=== PATIENT | male | born 1950 | race Caucasian/White ===

== ENCOUNTER 2019-12-23 02:43 | Observation (INO) | payer MEDICARE, BC ==
[~2019-12-23] VITALS: Ht 172.7 cm; Wt 68.2 kg
[2019-12-23] VITALS (14 sets, daily range): BP systolic 119–168; BP diastolic 59–80
[~2019-12-23 02:43] MED LIST: ASPI-611 PO; CLOP75TA35 PO; LOSA50TA64 PO; METO25TA6 PO; MULT-1085 PO; SIMV20TA PO; UBID100C16 PO
[2019-12-23] MEDS ORDERED: nitroGLYCERIN 0.4mg SUBLingual tab SL PRN ×2 (02:55→04:05)
[2019-12-23] MEDS ORDERED: aspirin 81mg tab.chew PO ONE (02:55)
[2019-12-23] MEDS ORDERED: CLOP75TA35 PO (03:00)
[2019-12-23 03:17] LABS: BASOPHILS # (AUTO) 0.1 X10'3 (0-0.2); EOSINOPHILS # (AUTO) 0.7 X10'3 (0-0.9); EOSINOPHILS % (AUTO) 10.5 % (0-6); HEMATOCRIT 40.5 % (42.0-52.0); HEMOGLOBIN 13.4 g/dl (14.0-17.9); LYMPHOCYTES # (AUTO) 2.3 X10'3 (1.1-4.8); LYMPHOCYTES % (AUTO) 33.7 % (21-51); MEAN CORPUSCULAR HEMOGLOBIN 31.9 PG (27.0-31.0); MEAN CORPUSCULAR VOLUME 96.6 FL (78-98); MEAN PLATELET VOLUME 8.1 FL (7.4-10.4); MONOCYTES # (AUTO) 0.9 X10'3 (0-0.9); MONOCYTES % (AUTO) 12.8 % (2-12); NEUTROPHILS # (AUTO) 2.9 X10'3 (1.8-7.7); PLATELET COUNT 306 X10'3 (140-440); RED BLOOD COUNT 4.19 X10'6 (4.70-6.10); RED CELL DISTRIBUTION WIDTH 12.8 % (11.5-14.5)
--- NOTE | 2019-12-23 03:21 | NUR ---
Gave patient 0.4mg Nitroglycerin. Pain began at 6/10 burning in right chest radiating to back and right shoulder. Initial blood pressure 191/85. Pulse 78, SpO2 96%, respiratory rate 13. Gave patient second dose of 0.4 Nitrogylcerin. Patient states pain is still 5/10. Blood pressure 170/88 at time given. Gave patient third dose of 0.4mg Nitroglycerin. Blood pressure 147/78 at time given. Patient states after third dose of Nitro that his pain is unchanged. Final blood pressure 133/80
[2019-12-23 03:26] LABS: ALANINE AMINOTRANSFERASE 30 U/L (12-78); ALBUMIN/GLOBULIN RATIO 1.1 (1.1-1.5); ALKALINE PHOSPHATASE 138 IU/L (46-116); ANION GAP 9 (8-16); ASPARTATE AMINO TRANSFERASE 35 U/L (10-37); BILIRUBIN,TOTAL 1.1 MG/DL (0.1-1.0); BLOOD UREA NITROGEN 16 MG/DL (7-18); BUN/CREATININE RATIO 12.3 (5.4-32.0); CALCIUM 9.1 MG/DL (8.5-10.1); CHLORIDE 104 MMOL/L (99-107); GLUCOSE 120 MG/DL (70-104); POTASSIUM 4.3 MMOL/L (3.5-5.1); SODIUM 140 MMOL/L (135-145); TOTAL CARBON DIOXIDE 26.7 MMOL/L (24-32); TOTAL PROTEIN 7.7 G/DL (6.4-8.2); eGFR 55 ML/MIN
[2019-12-23] MEDS ORDERED: nitroGLYCERIN 0.4mg/hour patch TD ONE (04:00)
[2019-12-23] MEDS ORDERED: mag hydrox/Alum hydrox/simeth 30ml oral suspension PO PRN (04:05)
[2019-12-23] MEDS ORDERED: regadenoson 0.4mg/5ml syringe IV ONE (04:05)
[2019-12-23] MEDS ORDERED: magnesium hydroxide 30ml (MOM) UD suspension PO PRN (04:05)
[2019-12-23] MEDS ORDERED: morphine 2 MG/ML inj. syringe IV PRN (04:05)
[2019-12-23] MEDS ORDERED: acetaminophen 325mg tablet PO PRN (04:05)
[2019-12-23] MEDS ORDERED: potassium Cl 20 mEq SR tablet PO PRN ×2 (04:05)
[2019-12-23] MEDS ORDERED: ondansetron/PF 4mg/2ml inj IV PRN (04:05)
[2019-12-23] MEDS ORDERED: magnesium 4gm in 100ml NS 100 ML IV PRN (04:05)
[2019-12-23] MEDS ORDERED: metoprolol tartrate 1mg/ml inj IV PRN (04:05)
[2019-12-23] MEDS ORDERED: magnesium Cl slow-release 64mg tablet PO PRN (04:05)
[2019-12-23] MEDS ORDERED: aminophylline 250mg/10ml inj. IV PRN (04:05)
[2019-12-23] MEDS ORDERED: potassium CL 10mEq/100ml bag 100 ML IV PRN ×2 (04:05)
[2019-12-23] MEDS ORDERED: magnesium 2GM in 50ml NS 50 ML IV PRN (04:05)
[2019-12-23] MEDS ORDERED: regadenoson 0.4mg/5ml syringe IV PRN (04:10)
[2019-12-23 04:36] LABS: PARTIAL THROMBOPLASTIN TIME 26 SECONDS (22-32)
--- NOTE | 2019-12-23 05:20 | NUR ---
received report from [facility], had opportunity to ask questions. awaiting arrival to floor.
--- NOTE | 2019-12-23 05:35 | NUR ---
pt arrived to floor with all belongings, tele attached, VS stable, call light in reach, pt orient to floor, pt ambulated from hallway to bed and is stable on his feet.
--- NOTE | 2019-12-23 06:17 | NUR ---
Patient in room PCU 3023. I have received report from BETSY [place] and had the opportunity to ask questions and assume patient care.
--- NOTE | 2019-12-23 06:19 | NUR ---
Problems reprioritized. Patient report given, questions answered & plan of care reviewed with Alyson Rodríguez RN.
--- NOTE | 2019-12-23 06:48 | NUR ---
Patient in room PCU 3023. I have received report from [facility] RN and had the opportunity to ask questions and assume patient care. Patient was resting comfortably in bed at time of handoff.
[2019-12-23] MEDS: aspirin 81mg tablet.DR PO SCH (07:29)
[2019-12-23] MEDS: clopidogrel 75mg tablet PO SCH (07:29)
[2019-12-23] MEDS: losartan 50mg tablet PO SCH (07:29)
[2019-12-23] MEDS: metoprolol tartrate 25mg tablet PO SCH ×2 (08:00→20:42)
[2019-12-23] MEDS: K and/or MAG REPLACEMENT MC SCH ×2 (08:00→20:00)
--- NOTE | 2019-12-23 13:59 | NUR ---
PAGER ID: [phone] MESSAGE: [email or web address] ON [email or web address], THE MELISSA REPORT IS AVAILABLE ON 0423B, THX
--- NOTE | 2019-12-23 14:24 | NUR ---
Paged Dr Beltran regarding pt's chest pain PAGER ID: [phone] MESSAGE: Molly Darrion Brooks Rm [id number] Pt complaining of chest pain 08/28, has nitro patch on. Please advise. Thanks Alyson Kemp [phone]
[2019-12-23] MEDS ORDERED: pantoprazole 40 MG vial IV ONE (14:30)
--- NOTE | 2019-12-23 14:46 | NUR ---
Per Dr Beltran, stop 12 hour EKG, he stated it wasn't needed at this time. Dr is going to order a CTA.
--- NOTE | 2019-12-23 15:24 | NUR ---
Paged sapna regarding pt's reaction to iodine PAGER ID: [phone] MESSAGE: Molly Darrion Brooks Rm [id number] Pt informed me he had a reaction to iodine a few years ago, he became flush and hot. Please advise. Thank you Alyson [phone]
[2019-12-23] MEDS ORDERED: diphenhydrAMINE 25mg capsule PO ONE (16:40)
--- NOTE | 2019-12-23 18:30 | NUR ---
Patient in room PCU 3023. I have received report from Alyson Rodríguez RN and had the opportunity to ask questions and assume patient care.
--- NOTE | 2019-12-23 19:38 | NUR ---
pt inspected for nitro patch none present (documentation shows on chest) on patient or bedding. pt states that he does not have a patch on his body either.
[2019-12-23] MEDS: prednisone 10mg tablet PO PRN (20:41)
[2019-12-23] MEDS ORDERED: atorvastatin 20mg tablet PO SCH (21:00)
[2019-12-24 02:30] VITALS: BP 138/72
[2019-12-24] MEDS: prednisone 10mg tablet PO PRN (03:05)
[2019-12-24 04:57] LABS: BASOPHILS % (AUTO) 0.4 % (0-1); EOSINOPHILS % (AUTO) 0.3 % (0-6); HEMATOCRIT 40.1 % (42.0-52.0); HEMOGLOBIN 13.4 g/dl (14.0-17.9); LYMPHOCYTES # (AUTO) 0.8 X10'3 (1.1-4.8); LYMPHOCYTES % (AUTO) 13.8 % (21-51); MEAN CORPUSCULAR HEMOGLOBIN 32.2 PG (27.0-31.0); MEAN CORPUSCULAR HGB CONC 33.4 g/dL (33.0-36.5); MEAN CORPUSCULAR VOLUME 96.4 FL (78-98); MEAN PLATELET VOLUME 8.2 FL (7.4-10.4); MONOCYTES # (AUTO) 0.1 X10'3 (0-0.9); MONOCYTES % (AUTO) 0.9 % (2-12); NEUTROPHILS # (AUTO) 4.8 X10'3 (1.8-7.7); NEUTROPHILS % (AUTO) 84.6 % (42-75); PLATELET COUNT 286 X10'3 (140-440); RED BLOOD COUNT 4.16 X10'6 (4.70-6.10); RED CELL DISTRIBUTION WIDTH 12.9 % (11.5-14.5); WHITE BLOOD COUNT 5.7 X10'3 (4.5-11.0)
[2019-12-24 05:10] LABS: ALANINE AMINOTRANSFERASE 30 U/L (12-78); ALBUMIN 3.7 G/DL (3.4-5.0); ALKALINE PHOSPHATASE 141 IU/L (46-116); ANION GAP 9 (8-16); ASPARTATE AMINO TRANSFERASE 31 U/L (10-37); BILIRUBIN,TOTAL 1.3 MG/DL (0.1-1.0); BLOOD UREA NITROGEN 18 MG/DL (7-18); BUN/CREATININE RATIO 15.5 (5.4-32.0); CALCIUM 9.2 MG/DL (8.5-10.1); CHLORIDE 102 MMOL/L (99-107); CREATININE 1.16 MG/DL (0.60-1.10); GLUCOSE 162 MG/DL (70-104); MAGNESIUM 2.3 MG/DL (1.5-2.4); POTASSIUM 4.3 MMOL/L (3.5-5.1); SODIUM 136 MMOL/L (135-145); TOTAL CARBON DIOXIDE 24.7 MMOL/L (24-32); TOTAL PROTEIN 7.4 G/DL (6.4-8.2); eGFR 62 ML/MIN
--- NOTE | 2019-12-24 05:44 | NUR ---
I have reviewed Kamran [facility] charting and I agree.
[2019-12-24 06:00] VITALS: BP 147/71
[2019-12-24] MEDS ORDERED: pantoprazole 40 MG vial IV SCH (08:00)
[2019-12-24] MEDS: K and/or MAG REPLACEMENT MC SCH (08:00)
[2019-12-24] MEDS ORDERED: diphenhydrAMINE 25mg capsule PO ONE (09:00)
--- NOTE | 2019-12-24 09:00 | NUR ---
Problems reprioritized. Patient report given, questions answered & plan of care reviewed with Kristine MEYER.
--- NOTE | 2019-12-24 09:23 | NUR ---
MD rounded on pt. Pt no longer having chest pain or original back pain. Cardiac tests negative and MD plans to discharge pt.
[2019-12-24] MEDS: losartan 50mg tablet PO SCH (10:13)
[2019-12-24] MEDS: aspirin 81mg tablet.DR PO SCH (10:15)
[2019-12-24] MEDS: metoprolol tartrate 25mg tablet PO SCH (10:15)
[2019-12-24] MEDS: clopidogrel 75mg tablet PO SCH (10:16)
[2019-12-24 11:00] VITALS: BP 115/58
--- NOTE | 2019-12-24 12:17 | NUR ---
Pt's brought me into the pt's room to discuss care. Spent at least 30 minutes discussing the 's and pt's concern about this admission. Pt. states he has previously been negative for stress tests and troponins and yet in angiograms at [facility], large occlusions were found and removed, stents were placed. Pt's states an angiogram has been done here as well and that "we should have records". Listened attentively to pt. and his . Explained that MD Abad had found pt. stable for discharge. Pt. upset because he just "saw a house doctor" and not a software architect. Asked pt. if he has a software architect. Pt. stated he did and that he planned on making an appointment with his software architect as soon as he was discharged. Asked two people what this primary RN could do for them and if they wanted me to contact MD Abad regarding discharge or to see if the y wanted MD to come talk to them. and pt. stated, "No! I'm ready to discharge. I'm all ready to go." Discussed this conversation with charge. She stated pt. has been deemed stable for transfer by MD Abad and a discharge order was already made and so to discharge the pt.
--- NOTE | 2019-12-24 13:05 | NUR ---
Reviewed discharge paperwork with pt. with at bedside as well. No new medications. IV DC'd, tle monitor returned and cleaned. Educated pt. on reason to come back to the ER. Gave written education on SOB and chest pain. Pt. read and gave good verbal feedback on at least 3 reasons why he should return to ER. Pt. states he will follow up with his PCP and head of digital as soon as he leaves. Went over home medications with pt. Discussed vaccinations. Pt. gathered all home belongings and took them with him.
== END 2019-12-24 13:00 | disposition home or self-care (01) ==
LOC: ER 02:44 → ED HOLD 04:02 → PCU 3S 05:35
PROVIDERS: ADMIT Family Medicine; ATTEND Family Medicine
DX: R07.89 Other chest pain (principal); I25.10 Atherosclerotic heart disease of native coronary artery without angina pectoris; M54.9 Dorsalgia, unspecified; I10 Essential (primary) hypertension; Z86.73 Personal history of transient ischemic attack (TIA), and cerebral infarction without residual deficits; Z95.5 Presence of coronary angioplasty implant and graft; Z79.02 Long term (current) use of antithrombotics/antiplatelets; Z79.899 Other long term (current) drug therapy; Z91.030 Bee allergy status
CPT/HCPCS: 36415; 71045; 78452; 80053; 83735; 83880; 84484; 85025; 85610; 85730; 87081; 93005; 93017; 93306; 96374; 96375; 96376; 99285; A9500; C9113; G0378; J2270; J2785; J7512

== ENCOUNTER 2019-12-27 06:16 | Observation (INO) | payer MEDICARE, BC ==
[~2019-12-27] VITALS: Ht 182.9 cm; Wt 65.9 kg
[2019-12-27] VITALS (24 sets, daily range): BP systolic 84–192; BP diastolic 42–94
[2019-12-27] MEDS ORDERED: aspirin 81mg tab.chew PO ONE (06:35)
[2019-12-27] MEDS ORDERED: morphine 4 MG/ML inj SYRINge IV ONE (06:45)
[2019-12-27] MEDS ORDERED: ondansetron/PF 4mg/2ml inj IV ONE (06:45)
[2019-12-27] MEDS ORDERED: methylPREDNISolone sod succ 125mg/2ml vial IV ONE (07:10)
[2019-12-27] MEDS ORDERED: diphenhydrAMINE 50 mg/ml inj IV ONE (07:10)
--- NOTE | 2019-12-27 07:19 | NUR ---
PT DIFFICULT IV STICK, LABS DELAYED
[2019-12-27] MEDS ORDERED: methylPREDNISolone sod succ/PF 40mg inj. IV ONE (07:20)
[2019-12-27] MEDS ORDERED: iohexol 350MG/ML 100ml bottle IV ONE ×3 (07:24→11:28)
[2019-12-27 07:50] LABS: BASOPHILS # (AUTO) 0.1 X10'3 (0-0.2); BASOPHILS % (AUTO) 1.1 % (0-1); EOSINOPHILS # (AUTO) 0.4 X10'3 (0-0.9); EOSINOPHILS % (AUTO) 6.3 % (0-6); HEMATOCRIT 40.2 % (42.0-52.0); HEMOGLOBIN 13.6 g/dl (14.0-17.9); LYMPHOCYTES # (AUTO) 1.8 X10'3 (1.1-4.8); MEAN CORPUSCULAR HEMOGLOBIN 32.9 PG (27.0-31.0); MEAN CORPUSCULAR HGB CONC 33.9 g/dL (33.0-36.5); MEAN CORPUSCULAR VOLUME 97.1 FL (78-98); MONOCYTES # (AUTO) 0.8 X10'3 (0-0.9); NEUTROPHILS % (AUTO) 56.6 % (42-75); PLATELET COUNT 299 X10'3 (140-440); RED BLOOD COUNT 4.14 X10'6 (4.70-6.10); RED CELL DISTRIBUTION WIDTH 12.7 % (11.5-14.5)
[2019-12-27 08:05] LABS: ALANINE AMINOTRANSFERASE 33 U/L (12-78); ALBUMIN 3.7 G/DL (3.4-5.0); ALKALINE PHOSPHATASE 123 IU/L (46-116); ANION GAP 6 (8-16); ASPARTATE AMINO TRANSFERASE 30 U/L (10-37); BILIRUBIN,TOTAL 1.3 MG/DL (0.1-1.0); BLOOD UREA NITROGEN 29 MG/DL (7-18); BUN/CREATININE RATIO 22.5 (5.4-32.0); CALCIUM 9.2 MG/DL (8.5-10.1); CHLORIDE 105 MMOL/L (99-107); CREATININE 1.29 MG/DL (0.60-1.10); GLUCOSE 115 MG/DL (70-104); POTASSIUM 4.3 MMOL/L (3.5-5.1); SODIUM 137 MMOL/L (135-145); TOTAL CARBON DIOXIDE 25.9 MMOL/L (24-32); TOTAL PROTEIN 7.3 G/DL (6.4-8.2); eGFR 55 ML/MIN
[2019-12-27 08:12] LABS: MAGNESIUM 2.7 MG/DL (1.5-2.4)
[2019-12-27] MEDS ORDERED: normal saline 1000ml 1,000 ML IV ONE (09:45)
[2019-12-27] MEDS ORDERED: mag hydrox/Alum hydrox/simeth 30ml oral suspension PO PRN (09:50)
[2019-12-27] MEDS ORDERED: magnesium hydroxide 30ml (MOM) UD suspension PO PRN ×2 (09:50→12:55)
[2019-12-27] MEDS ORDERED: morphine 2 MG/ML inj. syringe IV PRN ×2 (09:50)
[2019-12-27] MEDS ORDERED: acetaminophen 325mg tablet PO PRN ×4 (09:50→12:55)
[2019-12-27] MEDS ORDERED: HYDROcodone/acetaminophen 5mg/325mg tablet PO PRN (09:50)
[2019-12-27] MEDS ORDERED: ondansetron/PF 4mg/2ml inj IV PRN (09:50)
[2019-12-27] MEDS: normal saline 1000ml 1,000 ML IV SCH (10:19)
[2019-12-27] MEDS ORDERED: verapamil 2.5 mg/ml inj IV ONE (10:20)
[2019-12-27] MEDS ORDERED: LIDOcaine 1% (10mg/ml)w/preservative injection 20ml MDV ONE (10:20)
[2019-12-27] MEDS ORDERED: fentaNYL/PF 50MCG/1 ML 2ML syringe ONE (10:20)
[2019-12-27] MEDS ORDERED: nitroGLYCERIN-Tridil 50MG/D5W 250 ML IV ONE (10:20)
[2019-12-27] MEDS ORDERED: midazolam 2 mg/2 ml injection ONE (10:20)
[2019-12-27] MEDS ORDERED: iohexol 350 MG/ML 50ML vial IV ONE (10:21)
[2019-12-27] MEDS ORDERED: heparin 1,000unit/ml 10ml vial 10 ML ONE (10:21)
[2019-12-27] MEDS ORDERED: heparin 25,000 UNIT/250ml bag 250 ML IV ONE (11:28)
[2019-12-27] MEDS ORDERED: METO-395 PO (11:41)
[2019-12-27] MEDS ORDERED: clopidogrel 300mg tablet ONE (12:07)
[2019-12-27] MEDS ORDERED: HYDROcodone/acetaminophen 10/325mg tab PO PRN (12:55)
[2019-12-27] MEDS ORDERED: OXAZEpam 15mg capsule PO PRN (12:55)
[2019-12-27] MEDS: multivitamins, therapeutics tablet PO SCH (13:32)
[2019-12-27] MEDS ORDERED: LIDOcaine 2% 10ml TOPICAL JELLY (Urojet) TP ONE (13:45)
--- NOTE | 2019-12-27 14:32 | NUR ---
Patient arrived at 1220 from dental laboratory assistant. attached to monitor and cassidy transduced. Patient complaining of chest discomfort that "feels like heartburn" and hypertensive. After giving malox, chest discomfort resolved and BP starting to trend down...then the arrived and patient hypertensive again. pt trying to use the urinal but unable. Spoke to Dr Marte about placing a bhatia. Orders to place bhatia received, anticipating that it would resolve his BP. After some difficulty and switching to a coude, catheter placed, draining 475 of clear urine. BP still high at this point but trending down. Will continue to monitor
[2019-12-27] MEDS: cyclobenzaprine 10mg tablet PO PRN (15:03)
[2019-12-27] MEDS ORDERED: nitroGLYCERIN-Tridil 50MG/D5W 250 ML IV PRN (15:15)
[2019-12-27] MEDS: HYDROcodone/acetaminophen 10/325mg tab PO PRN (16:06)
[2019-12-27 16:16] LABS: ALBUMIN 3.3 G/DL (3.4-5.0); ANION GAP 6 (8-16); BLOOD UREA NITROGEN 22 MG/DL (7-18); CALCIUM 8.7 MG/DL (8.5-10.1); CHLORIDE 106 MMOL/L (99-107); GLUCOSE 99 MG/DL (70-104); POTASSIUM 4.5 MMOL/L (3.5-5.1); SODIUM 136 MMOL/L (135-145); TOTAL CARBON DIOXIDE 24.5 MMOL/L (24-32); eGFR 66 ML/MIN
--- NOTE | 2019-12-27 16:33 | NUR ---
No one on ICU able to run an ACT at 1530. Tried to take a sample to ER, but unsuccessful. Lab said they could run it, but after sending a sample and calling lab to check on results, laboratory mechanical technician reports he can not run ACT as previously stated. Charge aware and has been helping the whole time. Will call to notify Dr Marte Addendum: 12/27/19 at 7394 by Lg Zamorano RN Left message with answering service
--- NOTE | 2019-12-27 17:57 | NUR ---
MD called back and update on situation. Orders to pull sheath without checking ACT first. Sheath pulled at 1730; manual hold 20min. Femstop placed per policy and needs to remain on for 7 hrs. Patient tolerate well and no complications. no hematoma or SS of bleeding/swelling.
[2019-12-27] MEDS: docusate sod 100mg capsule PO SCH (20:00)
[2019-12-28] VITALS (14 sets, daily range): BP systolic 107–159; BP diastolic 53–74
[2019-12-28] MEDS: HYDROcodone/acetaminophen 10/325mg tab PO PRN ×2 (00:37→03:01)
[2019-12-28] MEDS: cyclobenzaprine 10mg tablet PO PRN (00:37)
[2019-12-28 02:57] LABS: BASOPHILS # (AUTO) 0.1 X10'3 (0-0.2); BASOPHILS % (AUTO) 0.8 % (0-1); EOSINOPHILS # (AUTO) 0.4 X10'3 (0-0.9); EOSINOPHILS % (AUTO) 5.3 % (0-6); HEMATOCRIT 35.1 % (42.0-52.0); HEMOGLOBIN 11.7 g/dl (14.0-17.9); LYMPHOCYTES # (AUTO) 1.6 X10'3 (1.1-4.8); LYMPHOCYTES % (AUTO) 21.9 % (21-51); MEAN CORPUSCULAR HEMOGLOBIN 32.6 PG (27.0-31.0); MEAN CORPUSCULAR HGB CONC 33.4 g/dL (33.0-36.5); MEAN CORPUSCULAR VOLUME 97.4 FL (78-98); MEAN PLATELET VOLUME 8.2 FL (7.4-10.4); MONOCYTES # (AUTO) 0.9 X10'3 (0-0.9); MONOCYTES % (AUTO) 12.6 % (2-12); NEUTROPHILS # (AUTO) 4.3 X10'3 (1.8-7.7); NEUTROPHILS % (AUTO) 59.4 % (42-75); PLATELET COUNT 234 X10'3 (140-440); RED CELL DISTRIBUTION WIDTH 12.9 % (11.5-14.5); WHITE BLOOD COUNT 7.2 X10'3 (4.5-11.0)
[2019-12-28 03:15] LABS: ALBUMIN 2.8 G/DL (3.4-5.0); ANION GAP 8 (8-16); BLOOD UREA NITROGEN 17 MG/DL (7-18); BUN/CREATININE RATIO 17.7 (5.4-32.0); CALCIUM 7.4 MG/DL (8.5-10.1); CHLORIDE 110 MMOL/L (99-107); CHOL/HDL RATIO 2.9 (0.00-4.99); CHOLESTEROL 126 MG/DL (0-200); CREATININE 0.96 MG/DL (0.60-1.10); GLUCOSE 79 MG/DL (70-104); HDL CHOLESTEROL 44 MG/DL (35-60); LDL CHOLESTEROL 68 MG/DL (50-100); POTASSIUM 3.6 MMOL/L (3.5-5.1); SODIUM 141 MMOL/L (135-145); TOTAL CARBON DIOXIDE 22.8 MMOL/L (24-32); TRIGLYCERIDES 109 MG/DL (20-135); eGFR 77 ML/MIN
[2019-12-28] MEDS: normal saline 1000ml 1,000 ML IV SCH ×3 (07:28→08:38)
[2019-12-28] MEDS ORDERED: metoprolol succinate 25mg (24-HOUR) SR. Tablet PO SCH (08:00)
[2019-12-28] MEDS ORDERED: atorvastatin 20mg tablet PO SCH (08:00)
[2019-12-28] MEDS ORDERED: non-formulary drug (Ubidecarenone (Coq-10) 100 MG) PO SCH (08:00)
[2019-12-28] MEDS ORDERED: losartan 50mg tablet PO SCH (08:00)
[2019-12-28] MEDS ORDERED: clopidogrel 75mg tablet PO SCH ×2 (08:00)
[2019-12-28] MEDS ORDERED: non-formulary drug (Aspirin (Aspir 81) 1 TAB) PO SCH (08:00)
[2019-12-28] MEDS ORDERED: aspirin 325mg tablet PO SCH (08:30)
[2019-12-28] MEDS: docusate sod 100mg capsule PO SCH (08:56)
[2019-12-28] MEDS: multivitamins, therapeutics tablet PO SCH (08:57)
[2019-12-28] MEDS ORDERED: ASPI-257 PO (15:12)
[2019-12-28] MEDS ORDERED: ATOR40TA72 PO (15:27)
--- NOTE | 2019-12-28 15:27 | NUR ---
Cardiac consult. History of hyperlipidemia, current lipid labs all within normal limits, LDL is less than 70. Pt given written heart healthy education handout to supplement current knowledge. Addendum: 12/28/19 at [address] Amended: Links added.
--- NOTE | 2019-12-28 17:05 | NUR ---
Discharged Home: voids 100ml's after bhatia is DC'd. Instructed to return to the ED for chest pain or for urinary retention. Instructions in writing to and Pt. All new medication changes are well understood.
== END 2019-12-28 17:15 | disposition home or self-care (01) ==
LOC: ER 06:16 → ED HOLD 09:57 → EDBEDREQ 10:24 → ICU 2S 12:24
PROVIDERS: ADMIT Internal Medicine; ATTEND Internal Medicine
DX: R07.89 Other chest pain (principal); I25.10 Atherosclerotic heart disease of native coronary artery without angina pectoris; E78.5 Hyperlipidemia, unspecified; E78.00 Pure hypercholesterolemia, unspecified; I25.2 Old myocardial infarction; I12.9 Hypertensive chronic kidney disease with stage 1 through stage 4 chronic kidney disease, or unspecified chronic kidney disease; N18.30 Chronic kidney disease, stage 3 unspecified; Z87.891 Personal history of nicotine dependence; Z95.5 Presence of coronary angioplasty implant and graft; Z79.02 Long term (current) use of antithrombotics/antiplatelets; Z79.82 Long term (current) use of aspirin; Z79.899 Other long term (current) drug therapy
CPT/HCPCS: 36415; 71045; 71275; 80048; 80053; 80061; 83735; 83880; 84484; 85025; 92920; 92921; 93005; 93458; 96361; 96365; 96366; 96375; 96376; 99285; C1725; C1751; C1769; C1894; G0378; J1200; J1644; J2001; J2250; J2270; J2405; J2920; J3010; J7030; J7040; Q9967; 99152; 99153; A5120; J3490

== ENCOUNTER 2022-09-27 06:49 | Day surgery (SDC) | payer MEDICARE, BC ==
[2022-09-26 10:29] LABS: BASOPHILS # (AUTO) 0.1 X10'3 (0-0.2); BASOPHILS % (AUTO) 1.7 % (0-1); EOSINOPHILS # (AUTO) 0.5 X10'3 (0-0.9); EOSINOPHILS % (AUTO) 10.3 % (0-6); HEMATOCRIT 38.9 % (42.0-52.0); HEMOGLOBIN 12.8 g/dl (14.0-17.9); LYMPHOCYTES # (AUTO) 1.5 X10'3 (1.1-4.8); LYMPHOCYTES % (AUTO) 29.9 % (21-51); MEAN CORPUSCULAR HGB CONC 32.9 g/dL (33.0-36.5); MEAN CORPUSCULAR VOLUME 97.4 FL (78-98); MONOCYTES # (AUTO) 0.6 X10'3 (0-0.9); MONOCYTES % (AUTO) 11.7 % (2-12); NEUTROPHILS # (AUTO) 2.4 X10'3 (1.8-7.7); NEUTROPHILS % (AUTO) 46.4 % (42-75); PLATELET COUNT 211 X10'3 (140-440); RED CELL DISTRIBUTION WIDTH 12.8 % (11.5-14.5); WHITE BLOOD COUNT 5.2 X10'3 (4.5-11.0)
[2022-09-26 10:41] LABS: ALBUMIN 3.5 G/DL (3.4-5.0); ANION GAP 9 (8-16); BLOOD UREA NITROGEN 25 MG/DL (7-18); BUN/CREATININE RATIO 22.3 (10.0-20.0); CALCIUM 9.1 MG/DL (8.5-10.1); CHLORIDE 107 MMOL/L (99-107); CREATININE 1.12 MG/DL (0.60-1.10); GLUCOSE 107 MG/DL (70-104); POTASSIUM 4.2 MMOL/L (3.5-5.1); SODIUM 141 MMOL/L (135-145); TOTAL CARBON DIOXIDE 25.4 MMOL/L (24-32); eGFR 64 ML/MIN
[2022-09-26 10:44] LABS: APTT 27 SECONDS (22-32); PROTHROMBIN TIME 10.3 SECONDS (9.0-12.0)
[2022-09-27] VITALS (9 sets, daily range): BP systolic 120–163; BP diastolic 58–86; PULSE 52–65; RESP 12–18; TEMP 97.8; O2SAT 95–98
[~2022-09-27] VITALS: Ht 172.7 cm; Wt 65.1 kg
[~2022-09-27 06:49] MED LIST changes: +ASPI-257 PO; -ASPI-611 PO; +ATOR40TA72 PO; +CLOP75TA34 PO; -CLOP75TA35 PO; +METO-395 PO; -METO25TA6 PO; -SIMV20TA PO
[2022-09-27] MEDS ORDERED: diphenhydrAMINE 25mg capsule PO PRN (07:05)
[2022-09-27] MEDS ORDERED: normal saline 1,000 ML IV SCH (07:05)
[2022-09-27] MEDS ORDERED: sodium bicarbonate 1meq/ml syr 150 ML in dextrose 5%-water 1,000 ML IV SCH (07:05)
[2022-09-27] MEDS ORDERED: acetylcysteine 200 MG/ml 4ml vial PO PRN (07:05)
[2022-09-27] MEDS ORDERED: LORazepam 0.5 MG tablet PO PRN (07:05)
[2022-09-27] MEDS ORDERED: SIMV-45 PO (07:21)
[2022-09-27] MEDS ORDERED: PANT40TA54 PO (07:21)
[2022-09-27] MEDS ORDERED: nitroGLYCERIN-Tridil 50MG/D5W 250 ML IV ONE (09:49)
[2022-09-27] MEDS ORDERED: iohexol 350MG/ML 100ml bottle IV ONE ×2 (09:50→11:00)
[2022-09-27] MEDS ORDERED: LIDOcaine 1% 30ml preserv. free vial ONE (09:50)
[2022-09-27] MEDS ORDERED: fentaNYL/PF 50MCG/1 ML 2ML syringe ONE (09:50)
[2022-09-27] MEDS ORDERED: midazolam 1 mg/ML 2ml injection ONE (09:50)
[2022-09-27] MEDS ORDERED: verapamil 2.5 mg/ml inj IV ONE (09:50)
[2022-09-27] MEDS ORDERED: heparin 1,000unit/ml 10ml vial 10 ML ONE (09:50)
[2022-09-27] MEDS ORDERED: iohexol 350 MG/ML 50ML vial IV ONE (10:40)
[2022-09-27] MEDS ORDERED: normal saline 500ml IV soln 500 ML IV SCH (12:00)
[2022-09-29] MEDS ORDERED: ASPI-529 PO (13:34)
[2022-10-06] MEDS ORDERED: HYDR-3972 PO (11:04)
== END 2022-09-27 16:00 | disposition home or self-care (01) ==
LOC: SSTAY O 06:49
PROVIDERS: ATTEND Internal Medicine Cardiovascular Disease
DX: I25.119 Atherosclerotic heart disease of native coronary artery with unspecified angina pectoris (principal); I10 Essential (primary) hypertension; E78.5 Hyperlipidemia, unspecified; Z95.5 Presence of coronary angioplasty implant and graft; Z79.01 Long term (current) use of anticoagulants; Z79.82 Long term (current) use of aspirin; Z79.899 Other long term (current) drug therapy; Z87.891 Personal history of nicotine dependence; Z82.3 Family history of stroke; Z82.49 Family history of ischemic heart disease and other diseases of the circulatory system
CPT/HCPCS: 36415; 76937; 80048; 85025; 85610; 85730; 93005; 93458; 99152; 99153; A6258; J1644; J2250; J3010; J3490; J7030; J7070; Q0163; Q9967; A6402; C1725; C1894

== ENCOUNTER 2022-10-31 11:27 | Outpatient (CLI) | payer MEDICARE, BC ==
[~2022-10-31 11:27] MED LIST changes: -ASPI-257 PO; +ASPI-529 PO; -ATOR40TA72 PO; -CLOP75TA34 PO; +HYDR-3972 PO; -LOSA50TA64 PO; +PANT40TA54 PO; +SIMV-45 PO
== END 2022-10-31 23:59 | disposition home or self-care (01) ==
LOC: VAS 11:27
PROVIDERS: ATTEND Surgery
DX: I82.401 Acute embolism and thrombosis of unspecified deep veins of right lower extremity (principal)
CPT/HCPCS: 93971